=== PATIENT | female | born 1980 | race African-American/Black ===

== ENCOUNTER 2021-05-18 18:52 | Emergency (ER) | payer BC, OTHER ==
[~2021-05-18] VITALS: Ht 167.6 cm; Wt 99.8 kg
[~2021-05-18 18:52] MED LIST: ADALAT CC90 MG PO; CIPROFLOXACIN500 M3 PO; COLACE 100 MG100 MG OR; COLACE 100 MG100 MG PO; HYDROCHLOROTHIA25 M1 PO; HYDROCODON-ACE1 EAC7 PO; HYDROCODONE-AP1 EAC6; IBUPROFEN 600600 M1 OR; IBUPROFEN 600600 M1 PO; IRON325; IRON325 PO; K-DUR 20 MEQ T20 MEQ PO; LABETALOL 100100 MG OR; LABETALOL 100100 MG PO; LANSINOH 60 GM60 GM; LISINOPRIL20 MG PO; LOMOTIL TABLET1 EACH PO; NORCO 5-325 TA1 EACH PO; NORVASC10 MG PO; PRENATAL; TRINATE TABLET1 TAB; ZOFRAN ODT4 MG PO
[2021-05-18 19:30] VITALS: BP 152/95
[2021-05-18 19:52] LABS: ABSOLUTE NEUTROPHILS 4.5 thou/uL (1.4-8.2); BASOPHILS 1.3 % (0.0-2.0); EOSINOPHILS 2.5 % (0.0-3.0); HEMATOCRIT 28.5 % (37.0-47.0); HEMOGLOBIN 9.2 gm/dL (12.0-15.0); LYMPHOCYTES 31.1 % (24.0-44.0); MCHC 32.1 g/dL (28.0-37.0); MCV 81.1 fL (80.0-100.0); MONOCYTES 8.6 % (1.0-8.0); PLATELET COUNT 325 thou/uL (150-400); POLYS 56.5 % (36.0-66.0); RBC 3.52 mil/uL (4.20-5.00); RDW 15.9 % (10.5-14.5); WBC 7.9 thou/uL (4.0-11.0)
[2021-05-18 19:58] LABS: CALCIUM 8.8 mg/dL (8.5-10.1); CREATININE 1.1 mg/dL (0.6-1.0); POTASSIUM 3.1 mmol/L (3.5-5.1)
[2021-05-18 20:04] LABS: ALBUMIN 3.8 g/dL (3.4-5.0); TOTAL BILIRUBIN 0.2 mg/dL (0.2-1.0); TOTAL PROTEIN 7.9 g/dL (6.4-8.2)
== END 2021-05-18 20:53 | disposition home or self-care (01) ==
LOC: ER 18:52
PROVIDERS: Emergency Medicine
DX: R60.0 Localized edema (principal); I10 Essential (primary) hypertension; Z79.899 Other long term (current) drug therapy